=== PATIENT | male | born 1965 | race Caucasian/White ===

== ENCOUNTER 2017-03-24 14:13 | Emergency (ER) | payer SELFPAY ==
[2017-03-24 14:17] VITALS: BP 187/124; PULSE 105; RESP 16; TEMP 97.9; O2SAT 96
--- NOTE | 2017-03-24 14:41 | PD ---
HPI Chief Complaint: Neuro Symptoms/ Deficits Time Seen by Provider: 14:28 Travel History International Travel<30 days: No Contact w/Intl Traveler<30days: No Traveled to known affect area: No History of Present Illness HPI 51yo M with PMH of HTN and dewitt's palsy 30 years ago presents to the ED with c/ o left facial droop for 3-4 days. States over a week ago, he had noise in his left ear, then it became pain. Now he has no pain but cant raise his left eyebrow as much as his right. He had dewitt's palsy before but it was worst. Denies any fever, chest pain, sob, n/v, abdominal pain, focal numbness or weakness besides left facial muscles. PFSH Past Medical History Hypertension: Yes Past Surgical History Surgical History: No Previous Surgery Social History Alcohol Use: Yes (1 BOTTLE OF WINE DAILY) Tobacco Use: No Allergies-Medications (Allergen,Severity, Reaction): Coded Allergies: No Known Allergies (Unverified , 03/24/17) Reported Meds & Prescriptions Reported Meds & Active Scripts Active No Active Prescriptions or Reported Medications Review of Systems Except as stated in HPI: all other systems reviewed are Neg Physical Exam Narrative GENERAL: 51yo M not in distress. SKIN: Focused skin assessment warm/dry. HEAD: Atraumatic. Normocephalic. EYES: Pupils equal and round. No scleral icterus. No injection or drainage. ENT: TM wnl bilaterally. NECK: Trachea midline. No JVD. CARDIOVASCULAR: Regular rate and rhythm. No murmur appreciated. RESPIRATORY: No accessory muscle use. Clear to auscultation. Breath sounds equal bilaterally. GASTROINTESTINAL: Abdomen soft, non-tender, nondistended. Hepatic and splenic margins not palpable. MUSCULOSKELETAL: No obvious deformities. No clubbing. No cyanosis. No edema. NEUROLOGICAL: Awake and alert. Positive left facial nerve palsy. Decreased height of left eyebrow when he raised both eyebrows and left facial droop. Sensation equal in V1, v2, V3 distribution. Motor grossly within normal limits. Normal speech. PSYCHIATRIC: Appropriate mood and affect; insight and judgment normal. Data Data Last Documented VS Vital Signs Date Time Temp Pulse Resp B/P Pulse Ox O2 Delivery O2 Flow Rate FiO2 03/24/17 14:17 97.9 105 16 187/124 96 MDM Medical Decision Making Medical Screen Exam Complete: Yes Emergency Medical Condition: Yes Differential Diagnosis Dewitt's palsy Narrative Course 51yo M with left dewitt's palsy for a few days. Pt given first dose of prednisone 60mg, acyclovir 400mg PO. Cautioned pt about eye protection. Return precautions given. Diagnosis Primary Impression: Dewitt's palsy Patient Instructions: General Instructions Departure Forms: Tests/Procedures Additional Instructions: Please follow up with your PMD in 3-7 days. Return to the ED if you have worsening symptoms. Med/Other Pt SpecificInfo: Prescription(s) given Scripts Propylene Glycol-Glycerin Opth Drops (Artificial Tears Opth Drops)1-0.3% Drops1- 2 Drop LEFT EYE BID PRN (DRY EYE) 7 Days Ref 0 Prov:Sherita Baez DO 03/24/17 Acyclovir 400 Mg [id number] Mg PO 5 TIMES A DAY 10 Days Ref 0 Prov:Sherita Baez DO 03/24/17 Prednisone 20 Mg Tab60 Mg PO DAILY 10 Days Ref 0 40 MG twice a day x 3 days, then 20 MG daily x 3 days, then 10 MG daily x 3 days Prov:Sherita Baez DO 03/24/17 Disposition: 01 DISCHARGE HOME Condition: Stable Sherita Baez DO Mar 24, 2017 14:41
[2017-03-24] MEDS ORDERED: ACYCLOVIR 200 MG CAP PO STA (15:32)
[2017-03-24] MEDS ORDERED: PRED20 PO (15:37)
[2017-03-24] MEDS ORDERED: ARTIDRO LEFT EYE (15:37)
[2017-03-24] MEDS ORDERED: ACYC400T PO (15:37)
[2017-03-24] MEDS ORDERED: predniSONE 20 MG TAB PO ONE (15:45)
== END 2017-03-24 15:47 | disposition home or self-care (01) ==
LOC: PHED 14:13
DX: G51.0 Bell's palsy (principal); I10 Essential (primary) hypertension
CPT/HCPCS: 99284; J7512